=== PATIENT | male | born 1975 | race Caucasian/White ===

== ENCOUNTER 2017-05-06 17:21 | Emergency (ER) | payer BC ==
[~2017-05-06] VITALS: Ht 185.4 cm; Wt 76.2 kg
[~2017-05-06 17:21] MED LIST: CLINDAMYCIN HC300 MG PO; FIORICET,ESG1 TABLET PO; NOHOMEMEDS; PERCOCET 5/31 TABLET PO
[2017-05-06] MEDS ORDERED: PEN-VEE K,VEET500 MG PO (19:05)
[2017-05-06] MEDS ORDERED: NORCO 5/3251 TABLET PO (19:05)
[2017-05-06 19:34] VITALS: BP 165/80
== END 2017-05-06 19:35 | disposition home or self-care (01) ==
LOC: RME 17:21 → EME 17:21 → RME 19:35
DX: K04.7 Periapical abscess without sinus (principal); K02.9 Dental caries, unspecified; K03.81 Cracked tooth; F17.200 Nicotine dependence, unspecified, uncomplicated
CPT/HCPCS: 99281; 99284